=== PATIENT | female | born 1935 | race Caucasian/White ===

== ENCOUNTER 2017-02-14 10:32 | Emergency (ER) | payer MEDICARE ==
[~2017-02-14] VITALS: Ht 167.6 cm; Wt 85.0 kg
[~2017-02-14 10:32] MED LIST: ADVA250A INH; BRIM0.2S4 EACH EYE; CART240C PO; CLIN300C5 PO; LISI-519 PO; METO50TA PO; MULT1CHW70; OCUVTAB PO; PREV30CA36 PO; PROT40TA PO; SERT-129 PO; VENTAER INH; WARF-18 PO; WARF-20 PO
[2017-02-14 10:33] VITALS: BP 134/84; PULSE 72; RESP 14; TEMP 98.2; O2SAT 99
--- NOTE | 2017-02-14 11:12 | PD ---
HPI Chief Complaint: Fall Time Seen by Provider: 10:56 Travel History International Travel<30 days: No Contact w/Intl Traveler<30days: No Traveled to known affect area: No History of Present Illness HPI Patient is a 81-year-old female presenting to the emergency department for evaluation after she sustained a mechanical fall this morning prior to arrival. Patient states that she slipped on an area rug, subsequently hitting the left mid back on a marble window sill. She denied any head injury or loss of consciousness. She denies any chest pain, dizziness, weakness prior to the fall. She reports a fall last week also secondary to tripping. She has a soft cast on the left arm. Patient currently denies any chest pain, shortness of breath, abdominal pain, headache, neck pain. She reports her pain as a 6 out of 10 and states aching and radiating to the anterior ribs. There are no alleviating factors, pain is exacerbated with deep respirations. PFSH Past Medical History Hx Anticoagulant Therapy: Yes (warfarin) Arthritis: Yes Atrial Fibrillation: Yes Depression: Yes Cancer: No Cardiac Catheterization: No High Cholesterol: Yes Chemotherapy: No Congestive Heart Failure: No COPD: Yes Cerebrovascular Accident: No Diabetes: No Diminished Hearing: No Endocrine: No Gastrointestinal Disorders: Yes (IBS) GERD: Yes Genitourinary: No Hypertension: Yes Immune Disorder: No Neurologic: No Psychiatric: No Reproductive: No Tetanus Vaccination: < 5 Years Influenza Vaccination: Yes Past Surgical History Coronary Artery Bypass Graft: No Eye Surgery: Yes (LEFT DETACHED RETINA) Gynecologic Surgery: Yes (BLADDER REPAIR X 2 ) Hysterectomy: Yes Other Surgery: Yes (FACE LIFT;L knee repair) Social History Alcohol Use: Yes (1-2 DRINK DAILY) Tobacco Use: No (quit 10 years ago) Substance Use: No Allergies-Medications (Allergen,Severity, Reaction): Coded Allergies: No Known Allergies (Verified , 02/11/16) Reported Meds & Prescriptions Reported Meds & Active Scripts Active Reported Advair Diskus Inh (Fluticasone-Salmeterol Inh) 250-50 Mcg/Blist Aer 1 Puff INH BID Rinse mouth after use. Ventolin Hfa 18 GM Inh (Albuterol Sulfate) 90 Mcg/Act Aer 1 Puff INH Q4H PRN Brimonidine Opth Drops (Brimonidine Tartrate) 0.2% Soln 1 Drop EACH EYE BID Lisinopril 5 Mg Tab 5 Mg PO DAILY Metoprolol Tartrate 50 Mg Tab 50 Mg PO BID Ocuvite (Multiple Vitamins W/ Minerals) 1 Tab 1 Tab PO DAILY Protonix (Pantoprazole Sodium) 40 Mg Tab 40 Mg PO DAILY Prevacid (Lansoprazole) 30 Mg Capdr 30 Mg PO DAILY Sertraline (Sertraline HCl) 100 Mg Tab 100 Mg PO DAILY Warfarin 4 Mg Tab 4 Mg PO DAILY Warfarin 2.5 Mg Tab 2.5 Mg PO DAILY Review of Systems Except as stated in HPI: all other systems reviewed are Neg Eyes: No: Blurred Vision HENT: No: Headaches, Neck Pain Cardiovascular: No: Chest Pain or Discomfort Respiratory: No: Shortness of Breath Gastrointestinal: No: Abdominal Pain Musculoskeletal: Positive: Pain Neurologic: No: Weakness, Dizziness, Syncope, Focal Abnormalities, Change in Mentation Physical Exam Narrative GENERAL: Well-developed, well-nourished, alert elderly female. Resting comfortably in no acute distress. SKIN: Warm and dry. Abrasion to left posterior elbow. No contusions or ecchymosis noted to the back or the left ribs in the area of pain. HEAD: Atraumatic. Normocephalic. EYES: Pupils equal and round. No scleral icterus. No injection or drainage. ENT: No nasal bleeding or discharge. Mucous membranes pink and moist. NECK: Trachea midline. No JVD. CARDIOVASCULAR: Regular rate and rhythm. RESPIRATORY: No accessory muscle use. Clear to auscultation. Breath sounds equal bilaterally. GASTROINTESTINAL: Abdomen soft, non-tender, nondistended. Hepatic and splenic margins not palpable. MUSCULOSKELETAL: Extremities without clubbing, cyanosis, or edema. No obvious deformities. Soft cast on left forearm. NEUROLOGICAL: Awake and alert. No obvious cranial nerve deficits. Motor grossly within normal limits. Five out of 5 muscle strength in the arms and legs. Normal speech. PSYCHIATRIC: Appropriate mood and affect; insight and judgment normal. Data Data Last Documented VS Vital Signs Date Time Temp Pulse Resp B/P (MAP) Pulse Ox O2 Delivery O2 Flow Rate FiO2 02/14/17 10:33 98.2 72 14 134/84 (101) [address] Brain W/O Iv Contrast(Rout) (02/14/17 ) Ct Cerv Spine W/O Contrast (02/14/17 ) Chest, Pa & Lat (02/14/17 ) Iv Access Insert/Monitor (02/14/17 11:02) Morphine Inj (Morphine Inj) (02/14/17 11:15) Ondansetron Inj (Zofran Inj) (02/14/17 11:15) [facility] Medical Decision Making Medical Screen Exam Complete: Yes Emergency Medical Condition: Yes Medical Record Reviewed: Yes Interpretation(s) Last Impressions Chest X-Ray 02/14/17 0000 Signed Impressions: Service Date/Time: Tuesday, February 14, 2017 11:28 - CONCLUSION: 1. Cardiomegaly. 2. Clear lungs. Hank Mayer MD Vital Signs Date Time Temp Pulse Resp B/P (MAP) Pulse Ox O2 Delivery O2 Flow Rate FiO2 02/14/17 10:33 98.2 72 14 134/84 (101) 99 Differential Diagnosis Contusion versus fracture versus pneumothorax versus sprain versus strain versus other Narrative Course Patient arrived for evaluation after a mechanical fall this morning. There are no focal deficits noted on exam. Patient's vital signs are stable. Imaging ordered and pending. Morphine and Zofran ordered for pain. Chest x-ray which was read by the radiologist shows no acute disease. CT scan of the brain with no acute findings. CT scan of the cervical spine shows no acute fracture or subluxation, osteopenia noted. Patient reports improvement in her pain after medication administration. Her vital signs remained stable. Patient will be discharged home with a prescription for Tylenol 3 as well as Lidoderm patches. She is encouraged to follow-up with her primary doctor in the next 2-3 days. She was encouraged to alternate heat and ice to the affected area. She was encouraged return to emergency department should she experience any new or worsening symptoms. Patient's pulse verbalized understanding of these instructions. Patient is stable for discharge. Diagnosis Primary Impression: Fall Qualified Codes: W19.XXXA - Unspecified fall, initial encounter Additional Impression: Back pain Qualified Codes: M54.6 - Pain in thoracic spine Referrals: Primary Care Physician 3 days Patient Instructions: General Instructions, Rib Contusion (ED) Additional Instructions: Follow-up with your primary doctor in 2-3 days Take medication as directed Use Lidoderm patches as directed Apply warm heat to the affected area Continue deep breathing exercises Return to emergency department for any new or worsening symptoms Med/Other Pt SpecificInfo: Prescription(s) given Scripts Lidocaine (Lidoderm) 5 % Adh..patch 1 PATCH TOPICAL DAILY Y for PAIN SCALE 1 TO 10, #30 Prov: Kaur Mitchell 02/14/17 Acetaminophen-Codeine (Tylenol-Codeine #3) 300-30 mg Tab 1 TAB PO Q4H Y for PAIN, #15 TAB 0 Refills Prov: Kaur Mitchell 02/14/17 Disposition: 01 DISCHARGE HOME Condition: Stable Kaur Mitchell Feb 14, 2017 11:12
[2017-02-14] MEDS ORDERED: ONDANSETRON HCL 4 MG/2 ML VIAL IV PUSH ONE (11:15)
[2017-02-14] MEDS ORDERED: MORPHINE SULFATE 4 MG/ML INJ IV PUSH ONE (11:15)
--- NOTE | 2017-02-14 11:40 | RADRPT ---
EXAM DATE/TIME: 02/14/2017 11:28 [facility] COMPARISON: No previous studies available for comparison. INDICATIONS : Patient fell today and complains of left sided chest/rib pain. MEDICAL HISTORY : Chronic obstructive pulmonary disease. SURGICAL HISTORY : None. ENCOUNTER: Initial ACUITY: 1 day PAIN SCORE: 5/10 LOCATION: Left chest FINDINGS: PA and lateral views of the chest demonstrate the lungs to be symmetrically aerated without evidence of mass, infiltrate or effusion. Heart mildly enlarged. The cardiomediastinal contours are unremarkab le. Kyphosis and degenerative changes. CONCLUSION: 1. Cardiomegaly. 2. Clear lungs. Hank Mayer MD on February 14, 2017 at 11:37 Board Certified Radiologist. This report was verified electronically.
--- NOTE | 2017-02-14 12:06 | RADRPT ---
EXAM DATE/TIME: 02/14/2017 11:44 [facility] COMPARISON: CT BRAIN W/O CONTRAST, September 10, 2015, 12:47. INDICATIONS : Trauma, fall today. RADIATION DOSE: 31.69 CTDIvol (mGy) MEDICAL HISTORY : Cardiovascular disease. Hypertension. SURGICAL HISTORY : Hysterectomy. ENCOUNTER: Initial ACUITY: 1 day PAIN SCALE: 5/10 LOCATION: Bilateral head TECHNIQUE: Multiple contiguous axial images were obtained of the head. Using automated exposure control and adj ustment of the mA and/or kV according to patient size, radiation dose was kept as low as reasonably a chievable to obtain optimal diagnostic quality images. DICOM format image data is available electro nically for review and comparison. FINDINGS: CEREBRUM: The ventricles are normal for age. No evidence of midline shift, mass lesion, hemorrhage or acute in farction. No extra-axial fluid collections are seen. POSTERIOR FOSSA: The cerebellum and brainstem are intact. The 4th ventricle is midline. The cerebellopontine angle i s unremarkable. EXTRACRANIAL: The visualized portion of the orbits is intact. SKULL: The calvaria is intact. No evidence of skull fracture. CONCLUSION: No acute intracranial disease. Hank Mayer MD on February 14, 2017 at 12:02 Board Certified Radiologist. This report was verified electronically.
--- NOTE | 2017-02-14 12:09 | RADRPT ---
EXAM DATE/TIME: 02/14/2017 11:44 [facility] COMPARISON: No previous studies available for comparison. INDICATIONS : Trauma, fall today. RADIATION DOSE: 15.44 CTDIvol (mGy) MEDICAL HISTORY : Cardiovascular disease. Hypertension. SURGICAL HISTORY : Hysterectomy. ENCOUNTER: Initial ACUITY: 1 day PAIN SCALE: 5/10 LOCATION: Bilateral neck TECHNIQUE: Volumetric scanning of the cervical spine was performed. Multiplanar reconstructions in the sagittal, coronal and oblique axial planes were performed. Using automated exposure control and adjustment o f the mA and/or kV according to patient size, radiation dose was kept as low as reasonably achievable to obtain optimal diagnostic quality images. DICOM format image data is available electronically f or review and comparison. FINDINGS: VERTEBRAE: Normal vertebral body height. Diffuse degenerative changes. Osteopenia. ALIGNMENT: No evidence of subluxation. C2-C3: The bony spinal canal is normal in size. No evidence of disc bulge or herniation. The neural forami na are bilaterally patent. C3-C4: The bony spinal canal is normal in size. No evidence of disc bulge or herniation. The neural forami na are bilaterally patent. C4-C5: The bony spinal canal is normal in size. No evidence of disc bulge or herniation. The neural forami na are bilaterally patent. C5-C6: The bony spinal canal is normal in size. No evidence of disc bulge or herniation. The neural forami na are bilaterally patent. C6-C7: The bony spinal canal is normal in size. No evidence of disc bulge or herniation. The neural forami na are bilaterally patent. C7-T1: The bony spinal canal is normal in size. No evidence of disc bulge or herniation. The neural forami na are bilaterally patent. CONCLUSION: 1. No fracture or subluxation. 2. Osteopenia. Hank Mayer MD on February 14, 2017 at 12:05 Board Certified Radiologist. This report was verified electronically.
[2017-02-14] MEDS ORDERED: TYLETAB34 PO (12:25)
[2017-02-14] MEDS ORDERED: LIDO1ADH4 TOPICAL (12:25)
== END 2017-02-14 12:37 | disposition home or self-care (01) ==
LOC: NEPE 10:32
DX: M54.6 Pain in thoracic spine (principal); I48.91 Unspecified atrial fibrillation; F32.9 Major depressive disorder, single episode, unspecified; J44.9 Chronic obstructive pulmonary disease, unspecified; E78.00 Pure hypercholesterolemia, unspecified; I10 Essential (primary) hypertension; W01.198A Fall on same level from slipping, tripping and stumbling with subsequent striking against other object, initial encounter; Z91.81 History of falling
CPT/HCPCS: 70450; 71020; 72125; 96374; 96375; 99285; J2270; J2405